=== PATIENT | female | born 1970 | race Hispanic/Latino ===

== ENCOUNTER 2018-03-20 12:00 | Inpatient (IN) | payer BC ==
--- NOTE | 2018-03-20 08:07 | HP ---
She is scheduled for surgery on 03/21/2018. HISTORY OF PRESENT ILLNESS: Ms. Maximus Renee is a 47-year-old female with history of right breast cancer who has been on 5 years of tamoxifen. She has stopped using tamoxifen in 01/11. She has been having bouts of heavy menstrual bleeding off and on intermittently for the past 2 months. She was evaluated in my office on 01/05/2018 and transvaginal ultrasound showed a uterus hugo suring 10.7 x 5 x 7 cm with 16 mm endometrial lining thickness, and a simple left ovarian cyst that w as 5.9 x 5.5 cm. There was no complexity to this cyst. She underwent endometrial biopsy for the irr egular bleeding showing endometrial polyp with no hyperplasia or cancer. PAST MEDICAL HISTORY: Significant and as noted right breast cancer, estrogen receptor positive. PAST SURGICAL HISTORY: She has had two prior sections. SOCIAL HISTORY: No tobacco use, no alcohol use. She is . CURRENT MEDICATIONS: Vitamins with vitamin C, fluticasone nasal spray for allergic rhinitis. ALLERGIES: She has no known drug allergies. FAMILY HISTORY: Essential hypertension in her father. No ovarian or breast cancer in first degree r elatives. No colon cancer in first degree relatives. PHYSICAL EXAMINATION: VITAL SIGNS: Her blood pressure is 112/70, pulse 77, respirations 18, height 65 inches, 150 pounds w ith a BMI of 25. CHEST: Clear to auscultation. HEART: Regular rate and rhythm. S1, S2 heart sounds, no murmurs, rubs or gallops. ABDOMEN: Soft, nontender, nondistended. Well-healed Pfannenstiel incision in previous sect ion. PELVIC: Vagina had no lesions. There was some menstrual blood in the vaginal vault. Uterus sounded to 10 cm with endometrial biopsy. No significant prolapse such as cystocele or rectocele were obser abdirizak. Cervix showed no lesions. She had recent Pap smear over the past year that was normal. The ut erus was mildly enlarged and some mild tenderness. Adnexa, there was some fullness in the left side, but no tenderness. ASSESSMENT: This is a 47-year-old female, G2, P2 with estrogen receptor positive, jaxson ast cancer history and tamoxifen use with irregular menstrual bleeding. Recent endometrial biopsy sh ows an endometrial polyp with 5.5 cm simple left ovarian cyst. Due to the patient's history, the pat ient is desiring definitive surgical therapy. We will proceed with a robotic total laparoscopic hyst erectomy with bilateral salpingo-oophorectomy on 03/21/2018. Risks and benefits of surgery are discu ssed in detail. She is set for surgery.
[2018-03-21] MEDS ORDERED: Gabapentin 300 MG CAP ONE (06:17)
[2018-03-21] MEDS ORDERED: CeleCOXIB 100 MG CAP ONE (06:17)
[2018-03-21] MEDS ORDERED: Famotidine/PF 20 mg/2ml Vial ONE (06:17)
[2018-03-21] MEDS ORDERED: Bupivacaine HCl 0.5%/Epinephrine 1:200,000/PF 30 ml Vial ONE (06:30)
[2018-03-21] MEDS ORDERED: Midazolam HCl 2 mg/2 ml Vial ONE (06:32)
[2018-03-21] MEDS ORDERED: Fentanyl 250 MCG/5 ML VIAL ONE (06:32)
[2018-03-21 10:08] LABS: Hemoglobin 9.8 g/dL (12.0-16.0); Mean Corpuscular HGB CONC 33.1 g/dL (32.0-36.0); Mean Corpuscular Volume 87.7 fL (78.0-98.0); Mean Platelet Volume 7.1 fL (7.4-10.4); Platelet Count 190 thou/uL (130-400); RBC Distribution Width 11.6 % (11.5-14.5); Red Blood Cell (RBC) Count 3.38 mill/uL (4.20-5.40); White Blood Cell (WBC) Count 7.9 thou/uL (4.8-10.8)
[2018-03-21] MEDS ORDERED: Fentanyl 100 MCG/2 ML VIAL ONE (10:58)
[2018-03-21] MEDS ORDERED: Promethazine HCl 25 MG/ML VIAL SLOW IVP PRN (11:14)
[2018-03-21] MEDS ORDERED: Ondansetron HCl/PF 4 MG/2 ML Vial IVP PRN ×2 (11:14→13:53)
[2018-03-21] MEDS ORDERED: Promethazine HCl 25 MG/ML VIAL IM PRN (11:14)
--- NOTE | 2018-03-21 12:02 | OP ---
DATE OF PROCEDURE: 03/21/2018 PREOPERATIVE DIAGNOSES: 1. A 47-year-old female, prior x2 with history of estrogen receptor positiv e breast cancer and tamoxifen use. 2. Abnormal uterine bleeding with endometrial polyp noted on ultrasound confirmed by biopsy. 3. Persistent 5 cm simple left ovarian cyst. POSTOPERATIVE DIAGNOSES: 1. A 47-year-old female, prior x2 with history of estrogen receptor positiv e breast cancer and tamoxifen use. 2. Abnormal uterine bleeding with endometrial polyp noted on ultrasound confirmed by biopsy. 3. Persistent 5 cm simple left ovarian cyst. 4. Inadvertent Veress needle grazing a retroperitoneal vessel with stable retroperitoneal hematoma. PROCEDURE PERFORMED: Robotic total laparoscopic hysterectomy and bilateral salpingo-oophorectomy. SURGEON: Kim Almonte M.D. GOOD HUMOR VENDOR: Roman Vela D.O. ANESTHESIA: General endotracheal. ESTIMATED BLOOD LOSS: 50 mL. COMPLICATIONS: Inadvertent Veress needle of a retroperitoneal blood vessel on entry. Retroperitonea l hematoma has been stable throughout and the patient has remained stable intraoperatively and with i ntraoperative hematocrit noted to be stable at 10 hemoglobin starting at 11. Intraoperative bedside consultation was with General Surgery, Dr. Maurizio Roper and then also intraoperative bedside consultati on with Dr. Víctor Squires of [facility]. PATHOLOGY: The uterus, bilateral tubes, ovaries and uterus. FINDINGS: 1. Left simple ovarian cyst noted approximately 5 cm in size with smooth surface on the cortex of th e ovary, normal appearing left fallopian tube, normal appearing right fallopian tube and ovary, joy l appearing external surface of the uterus. 2. Clear urine present in Desir catheter post-procedure with urine output over 500 mL during the alphonse e. Bladder was watertight to distension of over 350 mL of saline intraoperative post hysterectomy pr ocedure. 3. Stable retroperitoneal hematoma just below the base of the sacral promontory, with possible grazi ng site with minimal ooze noted on the left side of left sacral promontory inferiorly. The hematoma has remained stable on the path over the right pelvic sidewall. There was no expansion under low pat ient pressures with dropping the pressure below 5 mmHg intraoperatively with the pneumoperitoneum and visualization of the hematoma. Intraoperative consultation with Dr. Roper and Dr. Squires felt just s gabriel there was no evidence of expansion of the hematoma intraoperatively and with low pressure and th e patient's vital signs remained stable, that would observe her with serial hematocrits and close obs ervation of her vitals DISPOSITION: Disposition will be recovery room with stat hemogram on arrival and repeat in 2 hours a nd vital signs and urine output usual protocol for evaluation. DESCRIPTION OF OPERATIVE PROCEDURE: The patient previously received informed consent in regards to s urgbridger. She was taken back to the operating room where she received a general endotracheal anestheti c agent without complications. She was placed in dorsal lithotomy position with the use of Saleem sti rrups and prepped and draped in usual sterile fashion. A side-arm speculum was placed in the vagina after Desir catheter had been placed. The uterus sounded to 10 cm. A size 10 cm ROBBY uterine manipu lator with a 4.0 cm cervical cup was then placed. The tenaculum and speculum were then removed. Att ention was then turned to the abdomen where perspective trocar sites were infiltrated with 0.5% Milton ine with epinephrine. A 12 mm supraumbilical incision was made and this was stretched with a hemosta t. The abdomen was grasped and the abdominal wall was elevated. The Veress needle was inserted aimi ng towards the pelvis. On initial entry, there was noted to be some blood aspirated back with the Ve ress needle and therefore that the Veress needle was removed. The fascia of the abdomen where the in cision was made was grasped with Osito clamps and the fascia was nicked and then it was extended and the Veress needle was then placed through this. There was no evidence of any blood seen below the p eritoneum on initial visualization. The abdomen was insufflated to patient pressure of 15 and then a size 12 mm trocar was placed. The robotic laparoscope was introduced to the abdominal cavity. Ther e was no gross amount of intraperitoneal blood seen. There was some of what looked possibly a develo pment of some retroperitoneal hematoma that was not taut seen just below the sacral promontory with s ome extension to the right pelvic side wall. Due to the concern for possible grazing of this vessel, Dr. Roper was asked to come to the operating room from General Surgery. He visually inspected it ov er the console of the robot, which had been docked during this time waiting for his arrival. Vital s igns remained stable throughout this time per Anesthesia Service. He felt that we could proceed sinc e there was no evidence of expansion of the hematoma. So therefore, the hysterectomy was carried out . The bipolar fenestrated cautery was utilized to coagulate the left infundibulopelvic ligament. It was transected. Serial coagulation and transection of broad ligament, hugging close to the uterus w as carried out until the left round ligament was reached. It was coagulated and transected with mono polar scissors. The anterior leaf of the broad ligament was entered developing the vesicouterine per itoneal and dissection in usual fashion in a layering technique. The left uterine vessels were skele tonized at this time and cauterized in the internal cervical os region. We continued to observe the hematoma area and there continued to be no evidence of any expansion and vital signs remained stable. An intraoperative ABG was ordered to assess the hemoglobin for comparison from the preop which was 11 and intraoperative was 10 consistent with some dilutional effect from the recent IV fluid boluses. We proceeded then to carry out on the right side, the right infundibulopelvic ligament was identifi ed. It was grasped with my bipolar fenestrated cautery and coagulated and this was transected with m onopolar scissors. My assistant branch operations manager retracted the uterus with an atraumatic grasper from the right upper quadrant 11 mm assistant branch operations manager port then allowing me to continue to coagulate the broad ligament, hugging close to the right side of the uterus and the right round ligament was reached. It was coagulated an d transected. Again, the anterior leaf of the broad ligament was entered. Vesicouterine peritoneum was dissected sharply in a layering technique atraumatically taking the bladder down pass the cervica l vaginal angle, which was junction which was easily visualized by the cervical cup indentation. Onc e we felt we had taken the bladder safely past this vaginal cuff line, the bladder again was distende d and to confirm the position of the bladder and this was past my intended anterior colpotomy. The b ladder was watertight to distention over 300 mL of fluid. The right uterine vessels again were skele tonized and coagulated internal cervical os region. We continued again to inspect the retroperitonea l hematoma and it again remained stable throughout with no expansion. The anterior colpotomy was the n created from the 12 to 3 and 12 to 9 o'clock position. The uterine vessels were coagulated bilater ally with the bipolar fenestrated cautery and then the posterior colpotomy was completed from 6 to 3 and 6 to 9 o'clock position. The uterine specimen and the ovaries were then delivered into the vagin al vault. The cyst ruptured some leaking clear fluid on its way out of the vaginal cuff. The vagina l cuff was inspected. Any areas of bleeding were made hemostatic with bipolar fenestrated cautery. The monopolar scissors was exchanged with an [place] needle short haul driver. Stratafix suture was brought in by my assistant branch operations manager to the right upper quadrant assistant branch operations manager port. The vaginal cuff was closed in a full thic kness closure starting from the right angle then working from the left angle back towards the midline . Hemostasis of the vaginal cuff and pedicle sites were confirmed. The pelvis was irrigated and suc tioned. The hematoma again inspected and noted be hemostatic. Dr. Roper had also asked Dr. Squires of the [facility] Service to inspect the hematoma and for his insight and he was then at the bedside. Again, there was no evidence of expansion and the pneumoperitoneal pressure was dropped down to less than 5 mm and the area of the potential grazing of the retroperitoneal region was inspected. There w as no evidence of any active heavy bleeding or expansion of the hematoma and Dr. Squires felt again jus t observation with serial hemoglobins over the next few hours for stability to confirm no expansion o f the hematoma. Again, the patient remained with stable vital signs throughout and good urine output . The pelvis again was inspected. Hemostasis along all the pedicle sites were confirmed. The robot was undocked. The trocar sleeves were removed. The deep stitch of 0 Vicryl was placed in the fasci al defect in the umbilical region. The remainder of the trocar sites were closed with 4-0 Monocryl s uture and Dermabond was placed over the skin for hemostasis. The vaginal vault was checked and there was no active bleeding with a sponge stick noted. Clear urine was draining from the Desir catheter. The patient was awakened from anesthesia and transferred to the recovery room. A stat hemogram galdino l be obtained and repeat in 2 hours with continued close monitoring of her vital signs for any eviden ce of intraperitoneal bleeding.
[2018-03-21 12:07] LABS: Hemoglobin 10.7 g/dL (12.0-16.0); Mean Corpuscular HGB CONC 33.6 g/dL (32.0-36.0); Mean Corpuscular Hemoglobin 29.5 pg (27.0-31.0); Mean Corpuscular Volume 87.8 fL (78.0-98.0); Mean Platelet Volume 7.3 fL (7.4-10.4); Platelet Count 187 thou/uL (130-400); RBC Distribution Width 11.7 % (11.5-14.5); Red Blood Cell (RBC) Count 3.62 mill/uL (4.20-5.40); White Blood Cell (WBC) Count 10.7 thou/uL (4.8-10.8)
[2018-03-21] MEDS ORDERED: Dexamethasone 20 MG/5 ML VIAL ONE (12:58)
[2018-03-21] MEDS ORDERED: Glycopyrrolate 0.2 MG/ML 5 ML SYRINGE ONE (12:58)
[2018-03-21] MEDS ORDERED: ePHEDrine/0.9% NaCl/PF SYRINGE 50 mg/10 ml ONE (12:58)
[2018-03-21] MEDS ORDERED: Lidocaine 1% PF 5 ML VIAL ONE (12:58)
[2018-03-21] MEDS ORDERED: Ondansetron HCl/PF 4 MG/2 ML Vial ONE (12:58)
[2018-03-21] MEDS ORDERED: PROPOFOL 200 MG/20 ML VIAL ONE (12:58)
--- NOTE | 2018-03-21 13:57 | CON ---
DATE OF CONSULTATION: 03/21/2018 HISTORY OF PRESENT ILLNESS: Ms. Oviedo is a 47-year-old woman, who was in the operating room for a robotic hysterectomy today. On insertion the Veress needle , she had blood aspirated. The needle was backed up, insufflation was begun. The camera was inserted and there was a retroperitoneal hematoma of small volume noted on the right. I was initially called and was able to see the hematoma mid way through her hysterectomy. The hematoma was small and did not encroach on the pelvis from the retroperitoneum. The hematoma was observed throughout the procedure and did not increase in size. She has been watched in the recovery room for the last 3 hours. She has had no tachycardia. Her urine output has been good. Blood pressures remained stable in the 100-110 range systolically. Her preoperative hemoglobin checked, it was 9.4. Postoperatively , it was 9.8 at 10:00 a.m. and 10.7 at noon. She will have another one checked at 03:00 and then q.6 hours thereafter. She is going to the ICU for observation. Patient has been on no blood thinners at home. PAST MEDICAL HISTORY: Right sided breast cancer. PAST SURGICAL HISTORY: x2. Hysterectomy SOCIAL HISTORY: She does not use tobacco or alcohol. She is . CURRENT MEDICATIONS: Noted. ALLERGIES: None. PHYSICAL EXAMINATION: This was performed in the recovery room. GENERAL: The patient is awake and alert. VITAL SIGNS: Heart rate is 70, blood pressure 109/53. LUNGS: Clear bilaterally. HEART: Rhythm is regular. ABDOMEN: Soft and nontender. There is minimal tenderness around her incisions. She has no pelvic tenderness. VASCULAR: She has palpable femoral pulses bilaterally. ASSESSMENT AND PLAN: Retroperitoneal hematoma post laparoscopic/robotic hysterectomy. We will watch her hemoglobin serially as per Dr. Almonte's orders and observe her in the ICU where her vital signs can be watched very closely. If she were to become tachycardic or have other signs of bleeding, CT angiogram will be obtained and appropriate therapy will be undertaken from there. The patient will be kept at bed rest. She does not have any antiplatelet agents currently. [facility]
[2018-03-21] MEDS ORDERED: Lactated Ringer's 1,000 ML IV SCH (14:00)
[2018-03-21] MEDS: Acetaminophen 1,000 MG in Premix Bag 1 BAG IVPB SCH ×2 (14:07→20:18)
[2018-03-21 14:40] VITALS: BMI 24.6
[2018-03-21 15:40] LABS: Hemoglobin 10.1 g/dL (12.0-16.0); Mean Corpuscular HGB CONC 33.6 g/dL (32.0-36.0); Mean Corpuscular Hemoglobin 29.5 pg (27.0-31.0); Mean Corpuscular Volume 87.7 fL (78.0-98.0); Mean Platelet Volume 7.3 fL (7.4-10.4); Platelet Count 188 thou/uL (130-400); RBC Distribution Width 11.5 % (11.5-14.5); Red Blood Cell (RBC) Count 3.42 mill/uL (4.20-5.40); White Blood Cell (WBC) Count 13.1 thou/uL (4.8-10.8)
--- NOTE | 2018-03-21 15:54 | CON ---
DATE OF SERVICE: 03/21/2018 SERVICE: Pulmonary Medicine. REASON FOR CONSULTATION: Patient is a 47-year-old female with past medical history signific ant for metromenorrhagia who presented to the hospital from the outpatient setting for routine hyster ectomy and bilateral salpingo-oophorectomy. Inserting the initial needle, there was aspiration of bl ood. This was backed off, insufflation occurred. Once visualization occurred inside of the belly, t here was a hematoma identified. That being said, did not significantly change during the course of t he case. Cardiothoracic Surgery was consulted intraoperatively. The patient did well throughout the procedure. She is going to be watched in the ICU for close observation overnight. Currently, the p atient denies having any significant back discomfort or abdominal pain. She has a headache, and a li ttle bit of nausea with no vomiting. That being said, she is looking forward to eating a little bit later. She denies any current fevers, chills, nausea or vomiting and prior to this event, she was in her usual state of health. PAST MEDICAL HISTORY: Breast cancer. PAST SURGICAL HISTORY: 1. section x2. 2. Hysterectomy and bilateral salpingo-oophorectomy. 3. Right lumpectomy with subsequent lumpectomy of the larger region and sentinel lymph node biopsy. 4. Rhinoplasty. SOCIAL HISTORY: Negative for alcohol, tobacco or illicit drug use. She is . She frequents [employer]. She has no exposure to chemicals, dust asbestos or tuberculosis. FAMILY HISTORY: Noncontributory. ALLERGIES: No drug allergies. MEDICATIONS: List of her inpatient medications reviewed. No specific updates were made at this time . REVIEW OF SYSTEMS: General, head, ears, eyes, nose, throat, cardiovascular, respiratory, GI, , mus culoskeletal, neurologic and skin is negative except as mentioned in the HPI. PHYSICAL EXAMINATION: VITAL SIGNS: Afebrile, pulse 72, respirations 15, blood pressure 113/78, saturation 98% on room air. GENERAL: The patient is awake and alert, in no apparent distress. LUNGS: Excellent air entry. There is no prolonged expiratory phase, wheezing, rhonchi or crackles. HEART: Normal rate, regular. ABDOMEN: Minimal tenderness to palpation without rebound or guarding. Bowel sounds are hypoactive. GENITOURINARY: Desir catheter in place. NEUROLOGIC: Grossly nonfocal. LABORATORY DATA: WBC 10.7, hemoglobin 10.7, platelets 187,000. Baseline hemoglobin from yesterday w as 11.4. ASSESSMENT: 1. Acute blood loss anemia. 2. Retroperitoneal hematoma. 3. Hysterectomy and bilateral salpingo-oophorectomy, postop day #0. DISCUSSION AND PLAN: The patient is going to be observed in the ICU overnight. We will watch her vi tals closely and trend hemoglobins q.6 hours through time. If she remains stable overnight, she can transition out of the ICU. I will check INR with her next blood level.
[2018-03-21] MEDS ORDERED: diphenhydrAMINE 25 MG CAP PO PRN (16:59)
[2018-03-21] MEDS: traMADol HCl 50 MG TAB PO PRN (18:47)
[2018-03-21 21:40] LABS: Hemoglobin 9.8 g/dL (12.0-16.0)
[2018-03-21 21:46] LABS: Prothrombin Time 13.6 SEC (12.0-14.7)
[2018-03-22] MEDS: traMADol HCl 50 MG TAB PO PRN ×3 (00:40→20:45)
[2018-03-22 03:43] LABS: Mean Corpuscular HGB CONC 34.1 g/dL (32.0-36.0); Mean Corpuscular Hemoglobin 29.9 pg (27.0-31.0); Mean Corpuscular Volume 87.6 fL (78.0-98.0); Mean Platelet Volume 7.3 fL (7.4-10.4); Platelet Count 172 thou/uL (130-400); RBC Distribution Width 11.6 % (11.5-14.5); Red Blood Cell (RBC) Count 3.03 mill/uL (4.20-5.40); White Blood Cell (WBC) Count 11.9 thou/uL (4.8-10.8)
[2018-03-22] MEDS: Acetaminophen 1,000 MG in Premix Bag 1 BAG IVPB SCH ×3 (03:45→15:12)
--- NOTE | 2018-03-22 08:22 | PDOC.EVN ---
Event Note - Event Note Event Note: Patient resting in bed. Denies nausea. Mild crampy pelvic pain. No back pain. Jefferson light headed when she got up to chair and nurse had her lie back in bed. O: 90/49 Pulse 71 T48-jepeh output pasr 24 hrs 3300 ml-clear HGB 9.0 at 0300. INR 1.0 at 2100/hgb 9.8 at 2100. Abdomen: trochar sites clean and dry. Bowel sounds active. Non distened. No reboud. Expected post op tenderness... perineum:dry. A/P: post op day 1 from robotic tlh/bso with verees needle injury with retroperitoneal vessel. Expected HGB drop this AM. Pulse and urine output remain stable. Clinical abdominal exam stable. Continue icu observation as per Dr Squires's recommendations. Voiding trials. Will have patient slowly progress to upright position due to fact of being supine for over 24 hours. Advance diet as tolerated.
[2018-03-22 12:27] LABS: #Lymphocytes 0.7 thou/uL (1.20-3.40); #Monocytes 0.7 thou/uL (0.11-0.59); #Neutrophils 8.7 thou/uL (1.40-6.50); %Basophils 0.1 % (0.0-1.0); %Eosinophils 0.1 % (0.0-10.0); %Lymphocytes 6.9 % (21.0-51.0); %Monocytes 7.2 % (0.0-10.0); %Neutrophils 85.8 % (42.0-75.0); Hemoglobin 8.7 g/dL (12.0-16.0); Mean Corpuscular HGB CONC 33.7 g/dL (32.0-36.0); Mean Corpuscular Hemoglobin 29.6 pg (27.0-31.0); Mean Corpuscular Volume 87.6 fL (78.0-98.0); Mean Platelet Volume 7.3 fL (7.4-10.4); Platelet Count 169 thou/uL (130-400); RBC Distribution Width 11.8 % (11.5-14.5); Red Blood Cell (RBC) Count 2.95 mill/uL (4.20-5.40); White Blood Cell (WBC) Count 10.2 thou/uL (4.8-10.8)
--- NOTE | 2018-03-22 12:59 | PRG ---
DATE OF SERVICE: 03/22/2018 SERVICE: Pulmonary Medicine. INTERVAL HISTORY: The patient is actually doing quite well. When she gets out of bed, she has a lit tle bit of dizziness associated with orthostasis. Otherwise, there has been no interval change to he r condition. There is no source of bleeding. Hemoglobins have remained fairly stable. PHYSICAL EXAMINATION: VITAL SIGNS: Afebrile, pulse 69, blood pressure 94/52, respirations 13, saturation 97% on room air. GENERAL: The patient is awake, alert, no apparent distress. LUNGS: Excellent air entry. There is no prolonged expiratory phase, wheezing, rhonchi or crackles. HEART: Normal rate, regular. ABDOMEN: Soft. Minimal tenderness to palpation is present. No rebound or guarding. Bowel sounds a re hypoactive. GENITOURINARY: Desir catheter in place. NEUROLOGIC: Grossly nonfocal. LABORATORY DATA: WBC 10.2, hemoglobin 8.7, platelets 169,000. INR 1.0. ASSESSMENT: 1. Acute blood loss anemia. 2. Retroperitoneal hematoma. 3. Hysterectomy and bilateral salpingo-oophorectomy, postop day #1. DISCUSSION AND PLAN: Hemoglobins have remained fairly stable. The patient does have a little bit of orthostasis. We will continue to trend hemoglobins through time. If she continues to drop off, blo od transfusions may be indicated. For the time being, however, there is no evidence of any end organ damage: Pulmonary or Critical Care will continue to follow along as long as she remains in this loc ation.
[2018-03-22 17:05] LABS: Hemoglobin 8.7 g/dL (12.0-16.0)
[2018-03-23 07:07] LABS: Hemoglobin 8.8 g/dL (12.0-16.0)
[2018-03-23 08:46] VITALS: BP 98/56; TEMP 98.2
--- NOTE | 2018-03-24 04:18 | DIS ---
DATE OF ADMISSION: 03/21/2018 DATE OF DISCHARGE: 03/23/2018 DIAGNOSES: 1. Abnormal uterine bleeding with endometrial polyp. 2. Tamoxifen use. 3. Adenomyosis of uterus. 4. Leiomyoma uterus. 5. Retroperitoneal hematoma from surgical complications, stable. SUMMARY OF HOSPITAL COURSE: Ms. Mita Renee is a 47-year-old female with h istory of previous stage I breast cancer who has been on tamoxifen therapy for adjuvant coverage. Sh beny had been developing abnormal uterine bleeding with prolonged heavy menstrual bleeding issues. She was noted to have endometrial polyp seen on transvaginal ultrasound evaluation with biopsy confirmati on. She also had a persistent 5 cm left simple ovarian cyst. Due to her history, she elected to pro ceed with definitive surgical therapy. She underwent a total laparoscopic hysterectomy, bilateral sa lpingo-oophorectomy on 03/21/2018. During the surgery, the patient had a Veress needle appeared to g raze a sacral vein causing the development of the retroperitoneal hematoma. This was observed intrao peratively and it stabilized and therefore, the hysterectomy continued to carry down after that uneve ntfully. Due to the retroperitoneal hematoma, she had consultation service with Dr. Víctor Squires at [facility] and we elected to observe the patient closely with serial hemoglobins in the ICU unit. S he always remained stable with stable vital signs. Her hemoglobin stabilized at 8.8 range and she mora d no evidence of any orthostatic hypotension or symptomatic anemia in the afternoon of postop day #1 and then this morning of postop day #2. A repeat hemoglobin this morning, postop day #2 again stable at 8.8. She is ambulating and voiding without difficulty, and tolerating regular diet. Her pain co ntrol was adequate with Ultram. She has been told to avoid nonsteroidals due to the recent hematoma. Pathology did show evidence of a benign endometrial polyp with adenomyosis and leiomyomata of the u terus. The left ovary had follicular cysts that were benign. Right ovary had no pathologic disease. She was discharge home and has a scheduled followup 2 and 6 weeks postoperatively.
== END 2018-03-23 09:00 | disposition home or self-care (01) | DRG 742 ==
LOC: SURG A 03-21 06:02 → MERGE 03-21 12:00 → CCU 03-21 13:01 → 3SE 03-22 18:11
PROVIDERS: ADMIT Obstetrics & Gynecology; ATTEND Obstetrics & Gynecology
PROC: 0UT94ZZ Resection of Uterus, Percutaneous Endoscopic Approach (ICD-10-PCS; principal; 2018-03-21)
PROC: 0UT74ZZ Resection of Bilateral Fallopian Tubes, Percutaneous Endoscopic Approach (ICD-10-PCS; 2018-03-21)
PROC: 0UT24ZZ Resection of Bilateral Ovaries, Percutaneous Endoscopic Approach (ICD-10-PCS; 2018-03-21)
PROC: 8E0W4CZ Robotic Assisted Procedure of Trunk Region, Percutaneous Endoscopic Approach (ICD-10-PCS; 2018-03-21)
DX: N80.0 Endometriosis of uterus (principal); K91.62 Intraoperative hemorrhage and hematoma of a digestive system organ or structure complicating other procedure; D62 Acute posthemorrhagic anemia; Y83.6 Removal of other organ (partial) (total) as the cause of abnormal reaction of the patient, or of later complication, without mention of misadventure at the time of the procedure; D25.2 Subserosal leiomyoma of uterus; N84.0 Polyp of corpus uteri; N83.02 Follicular cyst of left ovary; N92.0 Excessive and frequent menstruation with regular cycle; Z85.3 Personal history of malignant neoplasm of breast
CPT/HCPCS: 36415; 85014; 85018; 85027; 85610; 88307; 96374; J0131; J0670; J1100; J2001; J2250; J2270; J2405; J2704; J3010; S0028

== ENCOUNTER 2018-03-20 12:51 | Outpatient (CLI) | payer BC ==
[2018-03-20 14:44] LABS: Hemoglobin 11.4 g/dL (12.0-16.0); Mean Corpuscular HGB CONC 33.2 g/dL (32.0-36.0); Mean Corpuscular Hemoglobin 29.1 pg (27.0-31.0); Mean Corpuscular Volume 87.5 fL (78.0-98.0); Mean Platelet Volume 7.1 fL (7.4-10.4); Platelet Count 220 thou/uL (130-400); RBC Distribution Width 11.8 % (11.5-14.5); White Blood Cell (WBC) Count 5.7 thou/uL (4.8-10.8)
[2018-03-20 14:48] LABS: BHCG - Serum Negative (NEGATIVE); Pregs Control Background? CLEAR/WHITE (CLR/WHITE); Pregs Control Bar Appear? YES (CONTROL BAR)
== END 2018-03-20 12:52 | disposition home or self-care (01) ==
LOC: LABBT 12:51 → MERGE 14:21
PROVIDERS: ATTEND Obstetrics & Gynecology
DX: Z01.812 Encounter for preprocedural laboratory examination (principal); N83.202 Unspecified ovarian cyst, left side; N92.0 Excessive and frequent menstruation with regular cycle; N84.0 Polyp of corpus uteri; Z85.3 Personal history of malignant neoplasm of breast
CPT/HCPCS: 84703; 85027; 86850; 86900; 86901

== ENCOUNTER 2018-06-09 11:57 | Outpatient (CLI) | payer BC | END 2018-06-09 11:58 | disposition home or self-care (01) | LOC: BICMAMMO 11:57 | PROVIDERS: ATTEND Internal Medicine Hematology & Oncology | DX: Z12.31 Encounter for screening mammogram for malignant neoplasm of breast (principal); R92.1 Mammographic calcification found on diagnostic imaging of breast; Z80.3 Family history of malignant neoplasm of breast; Z85.3 Personal history of malignant neoplasm of breast | CPT/HCPCS: 77063; 77067 ==

== ENCOUNTER 2019-06-13 08:15 | Outpatient (CLI) | payer BC ==
--- NOTE | 2019-06-13 09:01 | MMO ---
Bilateral MAMMO Bilat Screen [facility]. CLINICAL HISTORY: Patient is 48 years old and is seen for screening. The patient has no family history of breast cancer. 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 VIEWS: The views performed were: bilateral craniocaudal with tomosynthesis and bilateral mediolateral oblique with tomosynthesis. FILMS COMPARED: The present examination has been compared to prior imaging studies performed at [facility] on 06/04/2015, 06/07/2016, 06/08/2017 and 06/09/2018. This study has been interpreted with the assistance of computer-aided detection. MAMMOGRAM FINDINGS: There are scattered fibroglandular densities. There are benign appearing calcifications seen in the right breast. There are no suspicious masses, suspicious calcifications, or new areas of architectural distortion. IMPRESSION: THERE IS NO MAMMOGRAPHIC EVIDENCE OF MALIGNANCY. A ROUTINE FOLLOW-UP MAMMOGRAM IN 1 YEAR IS RECOMMENDED. THE RESULTS OF THIS EXAM WERE SENT TO THE PATIENT. ACR BI-RADS Category 2 - Benign finding MAMMOGRAPHY NOTE: 1. A negative mammogram report should not delay a biopsy if a dominant of clinically suspicious mass is present. 2. Approximately 10% to 15% of breast cancers are not detected by mammography. 3. Adenosis and dense breasts may obscure an underlying neoplasm. Reported by: KAISER ARIAS MD Electonically Signed: [id number]
== END 2019-06-13 08:16 | disposition home or self-care (01) ==
LOC: BICMAMMO 08:15
PROVIDERS: ATTEND Family Medicine
DX: Z12.31 Encounter for screening mammogram for malignant neoplasm of breast (principal); Z98.890 Other specified postprocedural states
CPT/HCPCS: 77063; 77067

== ENCOUNTER 2022-12-06 15:23 | Outpatient (CLI) | payer BC | END 2022-12-06 15:24 | disposition home or self-care (01) | LOC: BICMAMMO 15:23 | PROVIDERS: ATTEND Family Medicine | DX: Z12.31 Encounter for screening mammogram for malignant neoplasm of breast (principal); Z80.3 Family history of malignant neoplasm of breast; Z85.3 Personal history of malignant neoplasm of breast; Z98.890 Other specified postprocedural states | CPT/HCPCS: 77063; 77067 ==

== ENCOUNTER 2023-12-08 10:13 | Outpatient (CLI) | payer BC | END 2023-12-08 10:14 | disposition home or self-care (01) | LOC: BICMAMMO 10:13 | PROVIDERS: ATTEND Obstetrics & Gynecology | DX: Z12.31 Encounter for screening mammogram for malignant neoplasm of breast (principal); Z80.3 Family history of malignant neoplasm of breast; Z98.890 Other specified postprocedural states; Z85.3 Personal history of malignant neoplasm of breast | CPT/HCPCS: 77063; 77067 ==